=== PATIENT | female | born 1970 | race Caucasian/White ===

== ENCOUNTER 2017-01-11 05:17 | Day surgery (SDC) | payer BC ==
[2017-01-04 16:21] LABS: HEMATOCRIT 36.3 % (36.0-48.0); HEMOGLOBIN 12.3 g/dL (12.0-16.0)
[2017-01-04 16:33] LABS: BUN (BLOOD UREA NITROGEN) 21 MG/DL (6-23); CALCIUM, SERUM 8.9 MG/DL (8.5-10.4); CHLORIDE, SERUM 106 MMOL/L (96-112); CO2 (CARBON DIOXIDE) 30 MMOL/L (24-34); GFR AFRICAN AMERICAN 79 ML/MIN (>=60); GFR NON AFRICAN AMERICAN 68 ML/MIN (>=60); GLUCOSE, SERUM 92 MG/DL (60-99); POTASSIUM, SERUM 3.7 MMOL/L (3.5-5.3); SODIUM, SERUM 142 MMOL/L (135-148)
--- NOTE | ~2017-01-11 | OP ---
Record Of Operation [facility] [address] [place]. [address] NAME: ADY ALONZO : 74 STATUS : REG [facility] PAT#: [id number] AGE: 46 ADM/REG DATE : 01/11/17 MR#: [id number] REPORT SERV DATE: 01/11/17 DICTATED BY: JIMBO GLEZ DATE: 01/11/17 REPORT STATUS : Draft TRANSCRIBED BY: MODL DATE: 01/11/17 DATE OF PROCEDURE: PREOPERATIVE DIAGNOSES: 1. Klippel-Feil congenital fusion, C4-5. 2. Disk degeneration, spondylosis and spinal stenosis, C3-4 and C5-6, with radiculopathy. POSTOPERATIVE DIAGNOSES: 1. Klippel-Feil congenital fusion, C4-5. 2. Disk degeneration, spondylosis and spinal stenosis, C3-4 and C5-6, with radiculopathy. PROCEDURE: 1. Microscopic and navigation-assisted surgery. 2. Anterior cervical diskectomy, foraminotomy, C3-4 and C5-6. 3. Anterior interbody fusion with cortical cancellous allograft, C3-4 and C5-6. 4. Anterior segmental spinal instrumentation with Venture plating, C3-C6. SURGEON: Jimbo Glez D.O. WRAPPER [employer]AYER [employer] EXAMINER [employer]FT WORK: Wesley Gonzalez. ANESTHESIA: General. BLOOD LOSS: 20 mL. INDICATIONS FOR SURGERY: A 46-year-old female with neck pain, shoulder and arm pains, and bilateral arm pains, right greater than left. The patient has been through time, medication, therapy, and conservative care that failed. Plain x-rays reveal a Klippel-Feil deformity at C4-5. There is some instability particularly at C5-6 and there is a MRI-proven moderate spinal stenosis at C3-4 and C5-6. The patient has failed conservative care, brought to surgery for the above procedure having failed conservative care. Risks, benefits, alternatives, and expectations were explained, consent form has been signed. PROCEDURE IN DETAIL: Antibiotic prophylaxis given. Neurophysiology monitoring leads inserted. The patient was brought to the operative suite. General anesthetic including endotracheal intubation administered. She then had the scalp painted with Betadine solution. Stern 3-point fixation attached to the skull using 60 pounds of torque in standard position. The Stern was attached to the Whitney bed and the Admatic navigational registration frame attached to the [place]. The shoulders were taped by her side. The isolation drapes were placed and the neck was scrubbed with Hibiclens solution. DuraPrep was painted. Sterile drapes applied. Because of the complexity of surgery and the need to identify correct level of surgery intraoperatively, I felt intraoperative navigation was mandatory. Intraoperative CT scan with O-arm was obtained, CT information was used to register the Record Of Operation [address] [address] NAME: ADY ALONZO : 74 STATUS : REG [facility] PAT#: [id number] AGE: 46 ADM/REG DATE : 01/11/17 MR#: [id number] REPORT SERV DATE: 01/11/17 DICTATED BY: JIMBO GLEZ DATE: 01/11/17 REPORT STATUS : Draft TRANSCRIBED BY: GREER DATE: 01/11/17 navigational system. With navigational assistance, I identified the midpoint between C3-4 and C5-6. A left-sided transverse 2.5 cm Ennis-Lyn incision was carried out on the left side. The platysma was incised in line with skin incision. The superficial layer of the deep cervical fascia was released along the anterior border of the sternocleidomastoid. Blunt dissection was carried out to the retropharyngeal space with the longus coli muscles were subperiosteally elevated. Retractors were placed. An intraoperative re-identification of correct level of surgery was carried out with navigation. Microscope was sterilely draped and used throughout the remainder of the procedure. Initially, I put the Harwich distractor pins in the mid body of C3 and C4, and traction across the disk space was carried out. The anterior longitudinal ligament of the anulus were incised. The diskectomy completed with curettes and rongeurs and as I worked from anterior to posterior, I widened the disk space slightly by distracting with the pins. The diskectomy was completed all the way back to the posterior longitudinal ligament. There were osteophytic spurring and hypertrophied uncinate processes which were debrided with a 3 mm and a 2 mm jil bur. The posterior longitudinal ligament was taken down with a 1 mm Kerrison rongeur, and a generous foraminotomy completed, left and right side. The wounds were irrigated. The endplates were curetted. The width, depth, height of the disk space was measured. A wedge-shaped cortical cancellous allograft was inserted in the midline. The traction was released locking the graft in good position. Next, I moved the retractors of the C5-6, placed Harwich distractor pins and repeated the same identical diskectomy, foraminotomy, interbody fusion. Finally, an 8-hole Venture plate was placed over the anterior bodies of C3, 4, 5 and 6. It was carefully centered in the midline using navigational assistance. Eight holes were drilled. The locking screws inserted, providing rigid stability. Intraoperative AP and lateral x-rays showed good position of all implants. The retractor was removed. No bleeding was noted. The wound was completely dry. The platysma was closed with a running 3-0 Vicryl suture. The subcutaneous tissue closed with 3 0 Vicryl suture and subcuticular 4-0 PDS used for skin closure. Sterile dressings applied. The patient was awakened, extubated, and taken to recovery room in satisfactory condition having tolerated procedure well. Sponge, needle, and instrument counts were correct. No intraoperative complications noted. /GREER Jimbo Glez D.O. / [id number] Record Of Operation [address] [address] NAME: ADY ALONZO : 74 STATUS : REG [facility]#: [id number] AGE: 46 ADM/REG DATE : 01/11/17 MR#: [id number] REPORT SERV DATE: 01/11/17 DICTATED BY: JIMBO GLEZ DATE: 01/11/17 REPORT STATUS : Draft TRANSCRIBED BY: GREER DATE: 01/11/17 CC: Jimbo Glez D.O.
[~2017-01-11 05:17] MED LIST: ASAB PO; EFFEXOR XR150 MG PO; NORCO1 TA1 PO; PRIN20 PO
== END 2017-01-11 14:40 | disposition home or self-care (01) ==
LOC: SDC 05:17
PROVIDERS: Orthopaedic Surgery Orthopaedic Surgery of the Spine
PROC: 0RB30ZZ Excision of Cervical Vertebral Disc, Open Approach (ICD-10-PCS; 2017-01-11)
PROC: 0RG20K0 Fusion of 2 or more Cervical Vertebral Joints with Nonautologous Tissue Substitute, Anterior Approach, Anterior Column, Open Approach (ICD-10-PCS; principal; 2017-01-11 07:00)
PROC: 0RG20J0 Fusion of 2 or more Cervical Vertebral Joints with Synthetic Substitute, Anterior Approach, Anterior Column, Open Approach (ICD-10-PCS; 2017-01-11 07:00)
DX: M50.122 Cervical disc disorder at C5-C6 level with radiculopathy (principal); M50.11 Cervical disc disorder with radiculopathy, high cervical region; M48.02 Spinal stenosis, cervical region; M47.22 Other spondylosis with radiculopathy, cervical region; I10 Essential (primary) hypertension; F41.9 Anxiety disorder, unspecified; F32.9 Major depressive disorder, single episode, unspecified; F31.9 Bipolar disorder, unspecified; Z98.890 Other specified postprocedural states
CPT/HCPCS: 80048; 82962; 85014; 85018; 87641; 88304; 88311; 93005; A9270-GY; C1713; C1768; J0360; J0690; J2250; J2370; J2405; J2710; J3010